=== PATIENT | female | born 1970 | race Two or more races ===

== ENCOUNTER 2022-09-15 22:44 | Emergency (ER) | payer MEDICAID, OTHER ==
[~2022-09-15] VITALS: Ht 152.4 cm; Wt 63.6 kg
[2022-09-15 22:53] VITALS: BP 142/89
== END 2022-09-16 00:52 | disposition home or self-care (01) ==
LOC: EDBD 22:44 → ER 22:44
DX: S01.01XA Laceration without foreign body of scalp, initial encounter (principal); W22.8XXA Striking against or struck by other objects, initial encounter; Y93.89 Activity, other specified; Y92.89 Other specified places as the place of occurrence of the external cause; Y99.8 Other external cause status
CPT/HCPCS: 70450